=== PATIENT | male | born 2000 | race Caucasian/White ===

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

== ENCOUNTER 2021-01-15 00:02 | Emergency (ER) | payer OTHER ==
[~2021-01-15 00:02] MED LIST changes: +ATIVAN0.5 MG PO
== END 2021-01-15 00:20 | disposition left against medical advice (07) ==
LOC: ED 00:02
DX: R05 Cough (principal); R06.02 Shortness of breath; Z53.21 Procedure and treatment not carried out due to patient leaving prior to being seen by health care provider